=== PATIENT | female | born 1995 | race Hispanic/Latino ===

== ENCOUNTER 2017-06-27 10:26 | Emergency (ER) | payer BC, SELFPAY | END 2017-06-27 11:52 | disposition home or self-care (01) | LOC: SCSER 10:26 | DX: R68.83 Chills (without fever) (principal); I10 Essential (primary) hypertension | CPT/HCPCS: 99283 ==

== ENCOUNTER 2019-03-12 04:02 | Emergency (ER) | payer SELFPAY | END 2019-03-12 05:26 | disposition home or self-care (01) | LOC: ERS 04:02 | DX: O99.89 Other specified diseases and conditions complicating pregnancy, childbirth and the puerperium (principal); R52 Pain, unspecified; O10.911 Unspecified pre-existing hypertension complicating pregnancy, first trimester; Z79.899 Other long term (current) drug therapy | CPT/HCPCS: 99283 ==

== ENCOUNTER 2019-09-05 16:01 | Observation (INO) | payer OTHER ==
[2019-09-05 16:35] VITALS: BMI 40.8
[2019-09-05 17:11] LABS: #Eosinphils 0.1 thou/uL (0.0-0.7); #Lymphocytes 1.7 thou/uL (1.20-3.40); #Monocytes 0.4 thou/uL (0.11-0.59); #Neutrophils 5.1 thou/uL (1.40-6.50); %Basophils 0.4 % (0.0-1.0); %Eosinophils 1.1 % (0.0-10.0); %Lymphocytes 23.3 % (21.0-51.0); %Monocytes 5.7 % (0.0-10.0); %Neutrophils 69.4 % (42.0-75.0); Hemoglobin 10.6 g/dL (12.0-16.0); Mean Corpuscular HGB CONC 33.1 g/dL (32.0-36.0); Mean Corpuscular Hemoglobin 31.4 pg (27.0-31.0); Mean Corpuscular Volume 94.9 fL (78.0-98.0); Mean Platelet Volume 6.9 fL (7.4-10.4); Platelet Count 300 thou/uL (130-400); RBC Distribution Width 12.2 % (11.5-14.5); Red Blood Cell (RBC) Count 3.37 mill/uL (4.20-5.40); White Blood Cell (WBC) Count 7.3 thou/uL (4.8-10.8)
[2019-09-05 17:26] LABS: Creatinine, Urine 29.11 mg/dL (47-110); Protein, Urine Random Quant Less than 10 mg/dL (1-14)
[2019-09-05 17:32] LABS: ALT (SGPT) 20 U/L (8-55); AST (SGOT) 16 U/L (5-34); Albumin 3.7 g/dL (3.5-5.0); Alkaline Phosphatase 149 U/L (40-110); Anion Gap 14 mmol/L (10-20); BUN (Urea Nitrogen) 6 mg/dL (7.0-18.7); Bilirubin, Total 0.3 mg/dL (0.2-1.2); Calc. Creatinine Clearance 248 mL/min (70-130); Calcium 9.1 mg/dL (7.8-10.44); Carbon Dioxide 21 mmol/L (22-29); Chloride 107 mmol/L (98-107); Estimated GFR-MDRD Greater than 90; Globulin 2.9 g/dL (2.4-3.5); Glucose 101 mg/dL (70-105); Potassium 4.1 mmol/L (3.5-5.1); Protein, Total 6.6 g/dL (6.0-8.3); Sodium 138 mmol/L (136-145); Uric Acid 3.9 mg/dL (2.6-6.0)
[2019-09-05] MEDS ORDERED: hydrALAZINE 20 MG/ML VIAL SLOW IVP PRN (17:38)
[2019-09-05] MEDS ORDERED: Ondansetron PF 4 MG/2 ML Vial IVP PRN (17:38)
--- NOTE | 2019-09-05 19:18 | HP ---
PRIMARY OB: Yadira Gutierrez MD CHIEF COMPLAINT: Elevated blood pressures. HISTORY OF PRESENT ILLNESS: The patient is a 24-year-old G1, P0 female with an intrauterine at 34 weeks and 2 days, presenting to Labor and Delivery from clinic with severely elevated blood pressures. The patient reports that her doctor reports her blood pressure is 170/110 without symptoms and came here for evaluation. The patient does have a history of chronic hypertension, has been on labetalol 100 mg twice a day with most of this . She denies any headache, chest pain, shortness of breath, nausea, vomiting, diarrhea, constipation, hip problems, knee problems, or muscle weakness. Denies abdominal pain, vaginal bleeding, leakage of fluid, urinary urgency, or frequency. PAST MEDICAL HISTORY: Chronic hypertension. PAST SURGICAL HISTORY: Tonsils and adenoids were removed. SOCIAL HISTORY: Denies drug, alcohol, or tobacco use. ALLERGIES: NO KNOWN DRUG ALLERGIES. MEDICATIONS: vitamins and labetalol 100 mg twice a day. OB LABORATORY DATA: Blood type is O positive. Antibody screen is negative. Hepatitis B surface antigen is nonreactive. HIV nonreactive. GC chlamydia negative. Rubella immune. One-hour Glucola 100. GBS is negative, but this is dated 03/22/2019. REVIEW OF SYSTEMS: Per HPI. PHYSICAL EXAMINATION: VITAL SIGNS: Blood pressure on arrival is 155/112. Subsequent blood pressures have spontaneously dropped into the normal range over the course of an hour to 127/83, heart rate of 76, respiratory rate of 16, temperature 98.5. GENERAL: She appears to be in no acute distress. She is alert, oriented, cooperative, and pleasant to interact with. HEAD: Normocephalic, atraumatic. LUNGS: Clear to auscultation bilaterally. HEART: Has a regular rate and rhythm. ABDOMEN: Gravid, soft, nontender. EXTREMITIES: Nontender, nonedematous. She has 1+ DTRs. DIAGNOSTIC DATA: heart tracing shows the fetus with a baseline in the 140s with moderate long-term variability, positive 15 x 15 accelerations, no decelerations. Tocometer shows no contractions. Ultrasound was done most recently 2 weeks ago and within normal growth per Dr. Gutierrez's report. LABORATORY DATA: White count of 7.3, hemoglobin 10.6, hematocrit 32.0, platelets 300,000. Sodium 138, potassium 4.1, BUN 6, creatinine 0.54, AST of 16, ALT of 20. Random urine total protein less than 10. Urine creatinine of 29, uric acid 3.9. ASSESSMENT AND PLAN: The patient is a 24-year-old female with an intrauterine at 34 weeks and 2 days with a diagnosis of chronic hypertension and has been on labetalol 100 mg twice a day, now for most of her since about 13 weeks gestation. The patient appears to be exhibiting some exacerbation of her blood pressure, possibly blood pressures are ranging in the severe range systolic in the clinic and some severe range diastolic pressures here. However, these pressures have spontaneously resolved. There are no labs showing any worsening disease or clear evidence of preeclampsia. The patient is going to be observed here approximately for the next 24 hours. We will be increasing her labetalol dose to 200 twice a day and evaluate for good response. Should the patient continue to spike severe pressures, we will be placing her on magnesium during this evaluation. Fetus has a category 1 [address]ST[address] Gutierrez has been updated. Job ID: [id number]
[2019-09-05] MEDS: Labetalol 100 MG TAB PO SCH (21:05)
[2019-09-05] MEDS: Betamet Acet/Betamet Na Ph 30 MG/5 ML VIAL IM SCH (21:16)
[2019-09-06] MEDS ORDERED: Acetaminophen 500 MG TAB PO PRN (07:26)
--- NOTE | 2019-09-06 08:15 | PDOC.EVN ---
Event Note - Event Note Event Note: [employer] Technician OBGYN Here with Dr Archer and BPs reviewed Continue to follow on Labetolol 200mg po BIB...one elevated BP this am after going to bathroom. Otherwise normal. We are managing for Dr Gutierrez
--- NOTE | 2019-09-06 08:21 | PRG ---
DATE OF SERVICE: 09/06/2019 SUBJECTIVE: The patient is a 24-year-old female with chronic hypertension, who was admitted yesterday for exacerbation versus superimposed preeclampsia. Workup did not show any evidence of worsening disease and is presumed that she is having some exacerbation of her blood pressure. Her home medication has been increased from labetalol 100 mg twice a day to 200 mg twice a day beginning last night. This morning, she reports that she has a very mild headache, but is not requesting any pain medication or declined pain medication for it. She says it is just present but not causing her any pain. Denies any shortness of breath or chest pain. OBJECTIVE: VITAL SIGNS: Blood pressure this morning 159/103. The patient was sitting up at the side of her bed and had just come from the bathroom and having a discussion with myself, 30 minutes prior to that it is 117/72, 131/77, prior to that 116/80. Primary blood pressures overnight while she is sleeping was one teens to 100s over 50s to 60s. Yesterday evening, 130s to 150s where her blood pressure. Pulse in the 70s, respiratory rate 18. GENERAL: She appears to be in no acute distress. LUNGS: Clear. NEUROLOGIC: DTRs are 1+. heart tracing last night shows the fetus with a baseline in the 130s with moderate long-term variability, positive 15 x 15 accelerations, has not been placed on the monitor yet this morning. ASSESSMENT AND PLAN: The patient is a 24-year-old, G1, P0, female with chronic hypertension and intrauterine at 34 weeks and 3 days. We have increased her labetalol to 200 mg twice a day and we will be following her today to see if her blood pressures stay within the mild range. Her blood pressure this morning at 159/103, may not be indicative of her response due to the timing and the evidence around this blood pressure. Dr. Benton is the oncoming physician. He will continue to monitor and make adjustments as necessary with her medications. I anticipate the patient to be discharged either tonight or tomorrow. Job ID: [id number]
[2019-09-06] MEDS: Labetalol 100 MG TAB PO SCH ×2 (08:33→21:03)
[2019-09-06] MEDS ORDERED: FLU VACC QS2019-20(6MOS UP)/PF 60 MCG/0.5 ML SYRINGE IM ONE (09:00)
--- NOTE | 2019-09-06 09:35 | PRG ---
DATE OF SERVICE: 09/06/2019 OBGYN fuel injection servicer TIME OF EVALUATION: The time of evaluation was roughly 0855 hours until 0905 hours. The time is now 0907 hours. LOCATION: Antepartum bed 1 in Labor and Delivery. Please label this on-call note. Hospital day #1, in brief, this patient was admitted by Dr. Archer last night on-call as a patient of Dr. Gutierrez, who was at 34 weeks and 3 days with a history of chronic hypertension with blood pressures estimation from the clinic, who was sent here for further evaluation. She was placed on labetalol 200 mg [address] p[address] b[address]d. by Dr. Archre, which is higher dose than her baseline. She is here for blood pressure adjustment and no evidence of superimposed preeclampsia. I evaluated the patient at bedside along with Kim, the patient's nurse. Another observer was Gladis Parra, who is our undergraduate medical transport specialist. I addressed with the patient, the patient's condition and the desired management of conservative care until at least 37 weeks if possible. The patient does acknowledge that she has a history of chronic hypertension and so this is likely not a new development, but was untreated prenatally with medication adjusted during this . She denies any other medical history. The patient received steroid last night and her second dose will be tonight at approximately 2100 hours. I discussed with her medication adjustment and continuation of the medication at this dose with possible discharge home after her second steroid if the blood pressure remains nonsevere. The patient's blood pressures range from one teens over 120 systolic to 60s to 80s diastolic. When I was talking to her, and Kim was at bedside, the patient did have a blood pressure of 162 over low 90s. This was asymptomatic. This may have been anxiety induced/white coat hypertension. Right now, there is no indication for immediate delivery as this is most likely chronic hypertension. Her -induced hypertension laboratory data was reviewed by me, and is without overt abnormalities. Her hematocrit value is 32. Her platelets are 300. Her AST and ALT are 16 and 20 respectively, and her creatinine is 0.54. Her urine protein is negative, which rules out proteinuric hypertension (preeclampsia currently not present). FINAL ASSESSMENT: This is a patient at 34 weeks and 3 days, primigravida, with chronic hypertension history that needs medical adjustment. Steroids were given and she is under 36 weeks and 6 days, and this was addressed with her. PLAN: 1. Continue blood pressure observations with BP checks every 4. 2. Continue labetalol 200 mg one p.o. b.i.d. 3. Second steroid administration at 2100 hours tonight. 4. The patient has desired discharge after her steroid and I feel that is acceptable as long as her blood pressures remained in the nonsevere range. 5. I discussed with her that if she goes home, she may stay off work tomorrow for extra rest (without bed rest) with a blood pressure check on Tuesday next week. Job ID: [id number] MTDD
--- NOTE | 2019-09-06 18:28 | PDOC.EVN ---
Event Note - Event Note Event Note: OBGYN Doing well BPs reviewed...overall they are 130/70-80s...isolated spikes in BP occurred today but were sporadic. Second celestone pending. Patient does have known CHTN and protein is negative. I do feel it would be ok to release after the second injection with close outpatient follow up. I do not feel induction of labor is needed at this time. Meds: Labetolol 200mg po BIB
--- NOTE | 2019-09-06 19:14 | DIS ---
DATE OF ADMISSION: 09/05/2019 DATE OF DISCHARGE: 09/06/2019 The patient's primary DIAZO TECHNICIAN provider is Dr. Yadira Gutierrez. PRINCIPAL DIAGNOSES: 1. Third trimester . 2. Chronic hypertension. 3. Chronic hypertension, exacerbation. HISTORY OF PRESENT ILLNESS: In brief, the patient was admitted by Dr. Archer on September 05, 2019 for blood pressure control. She has a history of chronic hypertension that predates this gestation. She was on labetalol 100 mg p.o. b.i.d. and was sent from the office for blood pressure evaluation noted there. For full details of the H and P, please turn to the H and P dictated by Dr. Archer. I evaluated and assumed care of the patient on September 06, 2019 in the morning. Blood pressures remained between 120s to 140s with diastolics of 80s to 90s. She did have some elevated sporadic blood pressures in the high 150s to 160s, but they were not persistent and very isolated. This was also when I was talking to her or when the nurse was in the room, raising concern for possible "white coat" hypertension. She was asymptomatic. The patient's labs were all within normal limits during the evaluation process. Her urine protein was less than 10, which is negative. We discussed continued inpatient therapy versus outpatient and the patient felt comfortable with outpatient care. She did receive Celestone with second injection programmed for September 06, 2019 at approximately 9:00 p.m. I discussed with her continuation of labetalol dose at 200 mg one p.o. b.i.d. when she gets home. I did also order this prescription electronically at the pharmacy and she has 100 mg tablets at home which she will adjust to equal to 200 mg p.o. b.i.d. Also discussed discharge with Dr. Gutierrez, who is in agreement with the plan. She will follow up on Tuesday for repeat blood pressure check. Her EGA was 34 weeks and about 3 days. There was no acute indication or reason for induction at this time, and we discussed medically indicated induction of labor versus expectant management and expectant management was chosen based on her clinical well-being. Job ID: [id number]
[2019-09-06 21:04] VITALS: BP 123/70
[2019-09-06] MEDS: Betamet Acet/Betamet Na Ph 30 MG/5 ML VIAL IM SCH (21:07)
== END 2019-09-06 21:30 | disposition home health service (06) ==
LOC: L&D/OP 16:01 → L&D 17:48
PROVIDERS: ADMIT Obstetrics & Gynecology; ATTEND Obstetrics & Gynecology
DX: O10.913 Unspecified pre-existing hypertension complicating pregnancy, third trimester (principal); Z3A.34 34 weeks gestation of pregnancy; Z79.82 Long term (current) use of aspirin; Z79.899 Other long term (current) drug therapy
CPT/HCPCS: 36415; 80053; 82570; 84156; 84550; 85025; 87081; 96372; 99285; G0378; J0702

== ENCOUNTER 2019-09-19 16:27 | Inpatient (IN) | payer OTHER ==
[~2019-09-19 16:27] MED LIST: Bupivacaine PF 0.5% 30 ML VIAL ONE
[2019-09-19 17:18] VITALS: BMI 39.9
[2019-09-19] MEDS ORDERED: hydrALAZINE 20 MG/ML VIAL SLOW IVP PRN ×2 (18:23→19:11)
[2019-09-19] MEDS ORDERED: hydrALAZINE 20 MG/ML VIAL ONE (18:28)
[2019-09-19 19:07] LABS: #Basophils 0.1 thou/uL (0.0-0.2); #Eosinphils 0.1 thou/uL (0.0-0.7); #Lymphocytes 1.9 thou/uL (1.20-3.40); #Monocytes 0.5 thou/uL (0.11-0.59); #Neutrophils 6.8 thou/uL (1.40-6.50); %Basophils 0.7 % (0.0-1.0); %Eosinophils 0.9 % (0.0-10.0); %Lymphocytes 20.4 % (21.0-51.0); %Monocytes 5.3 % (0.0-10.0); %Neutrophils 72.7 % (42.0-75.0); Hemoglobin 11.6 g/dL (12.0-16.0); Mean Corpuscular HGB CONC 34.2 g/dL (32.0-36.0); Mean Corpuscular Hemoglobin 32.7 pg (27.0-31.0); Mean Corpuscular Volume 95.7 fL (78.0-98.0); Mean Platelet Volume 7.2 fL (7.4-10.4); Platelet Count 260 thou/uL (130-400); RBC Distribution Width 12.7 % (11.5-14.5); Red Blood Cell (RBC) Count 3.53 mill/uL (4.20-5.40); White Blood Cell (WBC) Count 9.4 thou/uL (4.8-10.8)
[2019-09-19] MEDS ORDERED: NS / Oxytocin 40 units/1000ml 1,000 ML IV PRN (19:11)
[2019-09-19] MEDS ORDERED: Promethazine HCl 25 MG/ML VIAL IM PRN (19:11)
[2019-09-19] MEDS ORDERED: Ibuprofen 800 MG TAB PO PRN (19:11)
[2019-09-19] MEDS ORDERED: Meperidine HCl/PF 25 MG/ML VIAL IM/IV PRN (19:11)
[2019-09-19] MEDS ORDERED: Lidocaine 1% (PF) 30 ML VIAL SC PRN (19:11)
[2019-09-19] MEDS ORDERED: Calcium Gluc 4.6 MEQ/10 ML (100 MG/ML) SLOW IVP PRN (19:11)
[2019-09-19] MEDS ORDERED: Ondansetron PF 4 MG/2 ML Vial IVP PRN (19:11)
[2019-09-19] MEDS ORDERED: HYDROcodone/Acetaminophen 5/325 mg Tablet PO PRN ×2 (19:11)
[2019-09-19] MEDS ORDERED: Butorphanol Tartrate 1 MG/ML VIAL SLOW IVP PRN (19:11)
[2019-09-19] MEDS ORDERED: Magnesium Sulfate 20 GM/WATER 500 ML BAG IVPB SCH (19:15)
[2019-09-19] MEDS ORDERED: NS w/ Oxytocin 10 units 500 ML IV SCH (19:15)
--- NOTE | 2019-09-19 19:17 | PDOC.LDHP ---
Labor and Delivery H&P Chief complaint: other (elevated BP in clinic) HPI: 24 yo LAF sent to L&D after seen at [facility] with BPs 160-170 systolic. Seen with elevated BPs 2 weeks ago and given steroids. Denies NORTH, blurry vision or RUQ pain. Current gestational age (weeks): 36 Due date: 10/15/19 Dating criteria: last menstrual period Grav: 1 Para: 0 OB History Details: PNC with Dr. Gutierrez complicated by chronic HTN. Current complications: hypertension Abnormal US findings: No Past Medical History: HTN Current medications: pre-rena vitamins, iron, other (Labetalol 200 BID) Previous surgical history: other (T&A) Allergies/Adverse Reactions: Allergies Allergy/AdvReac Type Severity Reaction Status Date / Time No Known Allergies Allergy Verified 09/19/19 17:18 Social history: none - Physical Exam Abnormal vital signs: 173/106 General: resting Heart: RRR Lungs: nonlabored breathing Abdomen: gravid Extremeties: trace edema FHT: category 1 [place] contractions every: occasional UC seen - Vaginal Exam cm dilated: 0 Effacement: 25% Station: -2 - OB Labs GBS: unknown - Assessment L&D Assessment: medically indicated induction (36 week IUP with chronic HTN Has received steroids) - Plan Plan: admit to L&D, cervical ripening, magnesium for seizure prophylaxis, anesthesia consult for pain management, other (D/w Dr. Gutierrez)
[2019-09-19] MEDS ORDERED: Labetalol HCl 100 MG/20 ML VIAL SLOW IVP SCH (19:30)
[2019-09-19] MEDS: Lactated Ringer's 1,000 ML IV SCH (19:35)
[2019-09-19] MEDS: Magnesium Sulfate 20 GM in Dextrose 5% in Water 460 ML IVPB SCH (19:35)
[2019-09-19 19:41] LABS: ALT (SGPT) 17 U/L (8-55); AST (SGOT) 16 U/L (5-34); Albumin 3.8 g/dL (3.5-5.0); Alkaline Phosphatase 186 U/L (40-110); Anion Gap 12 mmol/L (10-20); BUN (Urea Nitrogen) 6 mg/dL (7.0-18.7); Bilirubin, Total 0.4 mg/dL (0.2-1.2); Calc. Creatinine Clearance 246 mL/min (70-130); Calcium 9.6 mg/dL (7.8-10.44); Carbon Dioxide 23 mmol/L (22-29); Chloride 105 mmol/L (98-107); Estimated GFR-MDRD Greater than 90; Globulin 3.4 g/dL (2.4-3.5); Glucose 79 mg/dL (70-105); Potassium 3.9 mmol/L (3.5-5.1); Protein, Total 7.2 g/dL (6.0-8.3); Sodium 136 mmol/L (136-145)
[2019-09-19 19:52] LABS: Syphilis Antibody Nonreactive (Nonreactive); Syphilis Antibody Index 0.05 S/CO (<1.00 Non-Reactive)
[2019-09-19 19:53] LABS: HBSAg Index 0.24 S/CO (0-0.99); Hep B Surf Ag Non-Reactive S/CO (NonReactive)
[2019-09-19] MEDS: Misoprostol 100 MCG TAB VAG SCH ×2 (20:31→23:39)
[2019-09-19 21:08] LABS: Creatinine, Urine Less than 20.00 mg/dL (47-110); Protein, Urine Random Quant Less than 10 mg/dL (1-14)
[2019-09-20] MEDS: Misoprostol 100 MCG TAB VAG SCH ×4 (02:39→18:52)
[2019-09-20] MEDS: Magnesium Sulfate 20 GM in Dextrose 5% in Water 460 ML IVPB SCH ×3 (03:46→23:34)
[2019-09-20] MEDS ORDERED: Acetaminophen 325 MG TAB PO PRN ×2 (03:56→10:55)
[2019-09-20] MEDS ORDERED: Acetaminophen 325 MG TAB PO SCH (04:00)
[2019-09-20] MEDS ORDERED: Labetalol HCl 100 MG/20 ML VIAL SLOW IVP SCH ×2 (08:45→19:30)
[2019-09-20] MEDS ORDERED: FLU VACC QS2019-20(6MOS UP)/PF 60 MCG/0.5 ML SYRINGE IM ONE (09:00)
[2019-09-20] MEDS ORDERED: Fentanyl 4 mcg/Bup 0.1% Cadd 100 ML ONE ×2 (09:38→18:37)
[2019-09-20] MEDS: Fentanyl 4 mcg/Bupivacaine 0.1% Cassette 100 ML EPIDURAL SCH ×2 (10:49→18:45)
[2019-09-20] MEDS ORDERED: Promethazine HCl 25 MG/ML VIAL IM PRN (10:55)
[2019-09-20] MEDS ORDERED: Ondansetron PF 4 MG/2 ML Vial IVP PRN (10:55)
[2019-09-20] MEDS ORDERED: Naloxone HCl 0.4 mg/ml Vial IVP PRN ×2 (10:55)
[2019-09-20] MEDS ORDERED: ePHEDrine/0.9% NaCl/PF SYRINGE 50 mg/10 ml SLOW IVP PRN (10:55)
[2019-09-20] MEDS ORDERED: diphenhydrAMINE 50 MG/ML VIAL IVP PRN (10:55)
[2019-09-20] MEDS ORDERED: Lactated Ringer's 500 ML IV PRN (10:55)
[2019-09-20] MEDS ORDERED: Communication Order-Pharmacy FS SCH (11:00)
[2019-09-20] MEDS: Lactated Ringer's 1,000 ML IV SCH ×2 (11:05→12:11)
[2019-09-20] MEDS ORDERED: hydrALAZINE 20 MG/ML VIAL SLOW IVP PRN (21:50)
[2019-09-20] MEDS ORDERED: hydrALAZINE 20 MG/ML VIAL SLOW IVP SCH (22:00)
[2019-09-21] MEDS: hydrALAZINE 20 MG/ML VIAL SLOW IVP PRN ×2 (01:11→07:51)
[2019-09-21] MEDS ORDERED: Fentanyl 4 mcg/Bup 0.1% Cadd 100 ML ONE (04:11)
[2019-09-21] MEDS: Fentanyl 4 mcg/Bupivacaine 0.1% Cassette 100 ML EPIDURAL SCH (04:18)
[2019-09-21] MEDS ORDERED: Lidocaine 1% (PF) 30 ML VIAL ONE (04:25)
[2019-09-21] MEDS ORDERED: NS / Oxytocin 40 units/1000ml 1,000 ML ONE (04:25)
[2019-09-21] MEDS ORDERED: Carboprost 250 MCG/ML AMP ONE (04:31)
[2019-09-21] MEDS ORDERED: Misoprostol 200 MCG TAB ONE (04:32)
[2019-09-21] MEDS ORDERED: Bisacodyl 10 MG SUPP PR PRN (06:23)
[2019-09-21] MEDS ORDERED: Misoprostol 200 MCG TAB VAG PRN (06:23)
[2019-09-21] MEDS ORDERED: Acetaminophen/Codeine 30-300mg Tablet PO PRN (06:23)
[2019-09-21] MEDS ORDERED: Calcium Gluconate 4.6 MEQ in Sodium Chloride 0.9% 100 ML IVPB PRN (06:23)
[2019-09-21] MEDS ORDERED: Preparation H Ointment 28 GM TUBE PR PRN (06:23)
[2019-09-21] MEDS ORDERED: Milk Of Magnesia 30 ML UDCUP PO PRN (06:23)
[2019-09-21] MEDS ORDERED: Benzocaine-Menthol 82.5 ML CAN TOP PRN (06:23)
[2019-09-21] MEDS ORDERED: hydrALAZINE 20 MG/ML VIAL SLOW IVP PRN (06:23)
--- NOTE | 2019-09-21 06:23 | PDOC.OPDEL ---
OB Operative/Delivery Note Delivery Dr/Surgeon: Brenda Pre-Delivery Diagnosis: medically indicated induction Procedure/Post Delivery Dx: spontaneous vaginal delivery Weeks gestation: 36 Anesthesia: epidural - Findings A - 1 min: 8 - 5 min: 9 - Additional Findings/Plan Placenta delivered: spontaneous Repaired Obstetrical Laceration: 2nd degree Estimated blood loss: 150 ml qbl Post delivery plan: recovery in LICU
[2019-09-21] MEDS ORDERED: NS / Oxytocin 40 units/1000ml 1,000 ML IV SCH (06:30)
[2019-09-21] MEDS: Misoprostol 100 MCG TAB VAG SCH ×3 (07:48→18:26)
[2019-09-21] MEDS: Labetalol 100 MG TAB PO SCH ×2 (07:52→20:44)
[2019-09-21] MEDS ORDERED: Adacel (T-DAP) 0.5 ML SYRINGE IM ONE (09:00)
[2019-09-21] MEDS: Ibuprofen 800 MG TAB PO SCH ×2 (09:06→21:44)
[2019-09-21] MEDS: Magnesium Sulfate 20 GM in Dextrose 5% in Water 460 ML IVPB SCH ×2 (09:08→20:44)
[2019-09-21] MEDS: Lactated Ringer's 1,000 ML IV SCH ×2 (12:26→15:37)
[2019-09-21] MEDS: Ferrous Sulfate 325 MG TAB PO SCH ×2 (15:36→18:26)
[2019-09-21] MEDS: Prenatal Vitamin 1 TAB PO SCH (15:37)
[2019-09-21] MEDS: Docusate Calcium (SURFAK) 240 MG CAP PO SCH ×2 (15:37→20:44)
[2019-09-22] MEDS: Lactated Ringer's 1,000 ML IV SCH ×2 (03:35→14:57)
[2019-09-22] MEDS: Ibuprofen 800 MG TAB PO SCH ×3 (06:04→21:09)
--- NOTE | 2019-09-22 07:24 | PRG ---
DATE OF SERVICE: 09/22/2019 TIME OF SERVICE: 0700 hours. SUBJECTIVE: Ms. Cox is one day post normal spontaneous vaginal delivery by Dr. Yadira Gutierrez. She was put on LICU care for magnesium sulfate for severe gestational hypertension. The patient was on labetalol 200 p.o. b.i.d. prior to delivery. She has been back on this post delivery and has had blood pressures down to 100s/70s with this overnight. OBJECTIVE: VITAL SIGNS: Temperature 98.4, respirations 18, blood pressure 108/72, pulse 85. The patient is resting comfortably. Has no concerns. ABDOMEN: Soft and nontender. No rebound or guarding. Normal fundus. Normal lochia. EXTREMITIES: No clubbing, cyanosis, or edema. Urine output has been greater than 200 mL/h, clear urine, not concentrated. Edema is minimal. DTRs are 1+. The patient denies headache, scotoma, or right upper quadrant pain. IMPRESSION: Gestational hypertension, severe range in the alida-delivery period, now improved. PLAN: Discontinue mag, transfer to the floor. We will decrease labetalol to 100 p.o. b.i.d. and observe. The patient may need total cessation of labetalol if blood pressures remain low. The patient will likely be eligible for discharge on 09/23/2019. Job ID: [id number]
[2019-09-22] MEDS: Prenatal Vitamin 1 TAB PO SCH (09:59)
[2019-09-22] MEDS ORDERED: Labetalol 100 MG TAB PO SCH (10:00)
[2019-09-22] MEDS: Docusate Calcium (SURFAK) 240 MG CAP PO SCH ×2 (10:00→21:09)
[2019-09-22] MEDS: Misoprostol 100 MCG TAB VAG SCH (14:57)
[2019-09-22] MEDS: Labetalol 100 MG TAB PO SCH ×2 (14:58→21:10)
[2019-09-22] MEDS: Ferrous Sulfate 325 MG TAB PO SCH (14:58)
[2019-09-22] MEDS ORDERED: Lactated Ringer's 1,000 ML IV SCH (23:45)
[2019-09-22] MEDS ORDERED: Sodium Chloride 0.9% 10 ML ONE (23:51)
[2019-09-23] MEDS: Ampicillin/Sulbactam 3 GM in Sodium Chloride 0.9% 100 ML IVPB SCH ×4 (00:59→18:43)
[2019-09-23 01:03] LABS: Bacteria/HPF 2+ HPF (None Seen); Bilirubin Negative (Negative); Blood, Urine 3+ (Negative); Clarity Turbid (Clear); Glucose, Urine (Dipstick) Normal (Negative); Leukocyte 500 Leu/uL (Negative); Nitrite 2+ (Negative); Protein, Urine (Dipstick) 50 mg/dL (Neg-Trace); RBC/HPF Greater than 50 HPF (0-3); Urobilinogen Normal mg/dL (Less than 2); WBC/HPF Greater than 50 HPF (0-3)
[2019-09-23] MEDS: Ibuprofen 800 MG TAB PO SCH ×3 (05:23→21:46)
[2019-09-23] MEDS ORDERED: Lactated Ringer's 1,000 ML IV SCH ×2 (06:15)
--- NOTE | 2019-09-23 06:16 | PDOC.PP ---
Post Progress Note Post Day #: 2 Subjective: Pt reports doing better this morning. Reports still having some chills. Denies any fevers. Reports some burning after urination. Pt denies any cough, nasal congestion. Denies any nausea or vomiting. Pt denies any lightheadness or dizziness. Pt denies any chest pain or SOB. States has gotten up and went to the bathroom and doing well. Pt denies any vaginal discharge. Reports bleeding about the same as period. PO intake tolerated: yes Flatus: yes Ambulation: yes Vital Signs (12 hours) Temp Pulse Resp BP BP Pulse Ox 09/23/19 05:24 98.5 F 107 H 18 138/65 09/23/19 01:00 98.3 F 107 H 18 115/65 09/22/19 22:55 102.1 F H 123 H 20 128/64 09/22/19 21:10 98 145/76 H 09/22/19 21:05 100.6 F H 98 18 145/76 H 98 Weight Weight 98.883 kg - Physical Examination General: NAD Cardiovascular: no m/r/g Deviation from normal: Regular rhythm. Still mildly tachycardic Respiratory: clear to auscultation bilaterally, non-labored breathing Abdominal: + bowel sounds, lochia (Reports as noraml), no distention, appropriately TTP Fundus firm & at: below umbilicus Extremities: negative homans (B) Perineum: There is still some redness in vaginal area. No discharge. Perineum intact Neurological: no gross focal deficits Psychiatric: A&Ox3, normal affect Result Diagrams: 09/23/19 06:43 09/19/19 18:35 Additional Labs: Post Labs Blood Type O POSITIVE 09/19/19 19:20 Hep Bs Antigen Non-Reactive S/CO (NonReactive) 09/19/19 19:03 (1) , delivered Code(s): O80 - ENCOUNTER FOR FULL-TERM UNCOMPLICATED DELIVERY Status: Acute (2) Chronic hypertension affecting Code(s): O10.919 - UNSP PRE-EXISTING HTN COMP , UNSP TRIMESTER Status : Acute (3) Urinary tract infection Status: Acute Qualifiers: Urinary tract infection type: acute cystitis - Assessment/Plan 24 yo ->1, delivered at 36 weeks 2/2 severe Gestational HTN -Routine Post care -Reports normal lochia. -2nd degree lac. Incision intact. No drainage or sign of infection noted. Sepsis 2/2 UTI -Pt last night had fever to 102.1 and tachycardia to 126. Abdomen was hot and tender to touch. Possibly thought to endometritis vs UTI. -UA 3+ blood, 2+Nitrite, LE 500, WBC greater than 50, Urine Bacteria 2+, 4-6 squam epithelial. -Started on Unasyn 3g IV q6 hrs for concern for endometritis as labs were pending. Will switch to Rocephin to tx for UTI at this time. Urine cx, Blood cx pending. -LR fluid bolus x2. Will continue IVF if still tachycardic after 2nd bolus severe Gestational HTN -BP stable. No severe range pressures noted. -continue 100 mg Labetolol BID. Trend BP throughout the day and adjust as needed. -Received magnesium. Off for over 24 hours. Addendum - Attending - Attending Attestation Date/Time: 09/23/19 8828 I personally evaluated the patient and discussed the management with Dr. Dyer. I agree with the History, Examination, Assessment and Plan documented above with any addition or exceptions noted below. Fever of 102.1 last night. Started on Unasyn but UA returned consistent with UTI, so switched to Rocephin. Continue to monitor.
[2019-09-23 06:53] LABS: #Lymphocytes 0.7 thou/uL (1.20-3.40); #Monocytes 0.3 thou/uL (0.11-0.59); #Neutrophils 7.7 thou/uL (1.40-6.50); %Basophils 0.3 % (0.0-1.0); %Eosinophils 0.1 % (0.0-10.0); %Lymphocytes 8.1 % (21.0-51.0); %Monocytes 3.1 % (0.0-10.0); %Neutrophils 88.3 % (42.0-75.0); Hemoglobin 8.4 g/dL (12.0-16.0); Mean Corpuscular HGB CONC 34.4 g/dL (32.0-36.0); Mean Corpuscular Hemoglobin 33.3 pg (27.0-31.0); Mean Corpuscular Volume 96.7 fL (78.0-98.0); Platelet Count 164 thou/uL (130-400); RBC Distribution Width 12.4 % (11.5-14.5); Red Blood Cell (RBC) Count 2.54 mill/uL (4.20-5.40); White Blood Cell (WBC) Count 8.7 thou/uL (4.8-10.8)
--- NOTE | 2019-09-23 07:40 | PDOC.PP ---
Post Progress Note Post Day #: 1 Subjective: Pt initially had fever to 100.6 but was relatively asx. Just reported some chills. Denied any vaginal discharge. Pt denied any cough, nasal congestion. Denied any chest pain or SOB. She denied any burning with urination or increased frequency. At this time motrin was given and continued to monitor. VS were stable at this time. An hour later was notified pt had fever to 102. 1 and was tachycardic to 102.1. Pt again mainly reported having chills. She at this time reported some minimal abdominal pain. Reported some burning in vaginal area after urination. Denied any increased frequency. PO intake tolerated: yes Flatus: yes Ambulation: yes Vital Signs (12 hours) Temp Pulse Resp BP BP Pulse Ox 102.1 126 18 09/22/19 21:05 100.6 F H 98 18 145/76 H 98 Weight Weight 98.883 kg - Physical Examination General: NAD Deviation from normal: Pt reported some chills. Pt was hot to touch. Cardiovascular: no m/r/g Deviation from normal: Pt tachycardic, normal rhythm Respiratory: clear to auscultation bilaterally, non-labored breathing Abdominal: + bowel sounds, lochia, no distention Deviation from normal: Uterine fundus mildly tender to palpation. Abdomen Hotter to touch overall Fundus firm & at: umbilicus Deviation from normal: Hot to touch compared to rest of body Extremities: negative homans (B) Perineum: Incision intact. No sign of infection, redness or drainage. Deviation from normal: Vaginal area seemed somewhat irritated. No discharge or purulence noted Neurological: no gross focal deficits Psychiatric: A&Ox3, normal affect Result Diagrams: 09/23/19 06:43 09/19/19 18:35 Additional Labs: Post Labs Blood Type O POSITIVE 09/19/19 19:20 Hep Bs Antigen Non-Reactive S/CO (NonReactive) 09/19/19 19:03 (1) , delivered Code(s): O80 - ENCOUNTER FOR FULL-TERM UNCOMPLICATED DELIVERY Status: Acute (2) Chronic hypertension affecting Code(s): O10.919 - UNSP PRE-EXISTING HTN COMP , UNSP TRIMESTER Status : Acute (3) Endometritis Code(s): N71.9 - INFLAMMATORY DISEASE OF UTERUS, UNSPECIFIED Status: Acute - Assessment/Plan At this time pt meets sepsis criteria with fever and tachycardia. Suspect Endometiritis at this time as uterus hot to touch. Some irritation noted in vaginal area. -Urinalysis, Urine Cx, and Blood cx ordered. Flu swab ordered. -Started on Unasyn 3g q6hrs at this time. -Will give 1L LR bolus. -Will continue to monitor vitals -Tylenol and ibuprofen for fevers as needed.
[2019-09-23] MEDS ORDERED: cefTRIAXone\\ROCEPHIN 2 GM in Sodium Chloride 0.9% 100 ML IVPB SCH (08:00)
--- NOTE | 2019-09-23 08:40 | PDOC.EVN ---
Event Note - Event Note Event Note: OBGYN Tube Coverer: 0840 S/P prior team hand off Case reviewed Suspected endometritis vs urinary source. Team has changed over to Unasyn IV this am for broad coverage Blood and urine CX sent Influ negative
[2019-09-23] MEDS: Labetalol 100 MG TAB PO SCH ×2 (09:03→21:46)
[2019-09-23] MEDS: Prenatal Vitamin 1 TAB PO SCH (09:03)
[2019-09-23] MEDS: Docusate Calcium (SURFAK) 240 MG CAP PO SCH ×2 (09:04→21:46)
--- NOTE | 2019-09-23 17:29 | PDOC.EVN ---
Event Note - Event Note Event Note: Temp check: Tmax today 99.8
[2019-09-23] MEDS ORDERED: Sodium Chloride 0.9% 10 ML ONE (18:41)
[2019-09-24] MEDS: Ampicillin/Sulbactam 3 GM in Sodium Chloride 0.9% 100 ML IVPB SCH ×3 (00:49→12:59)
[2019-09-24] MEDS: Ibuprofen 800 MG TAB PO SCH ×2 (05:39→15:01)
--- NOTE | 2019-09-24 07:51 | PDOC.PP ---
Post Progress Note Post Day #: 3 Subjective: Feeling better. No issues. PO intake tolerated: yes Flatus: yes Ambulation: yes Vital Signs (12 hours) Temp Pulse Resp BP Pulse Ox 09/24/19 05:44 98.2 F 81 17 137/73 09/23/19 21:46 111 H 09/23/19 20:00 98.1 F 111 H 99 H 128/83 99 Weight Weight 218 lb Result Diagrams: 09/23/19 06:43 09/19/19 18:35 Additional Labs: Post Labs Blood Type O POSITIVE 09/19/19 19:20 Hep Bs Antigen Non-Reactive S/CO (NonReactive) 09/19/19 19:03 - Assessment/Plan Afebrile past 24 hours. E coli in urine. Currently on Unasyn. Final sensitivities pending. F/u results. May discharge home on oral meds tiday if continues to progress well.
[2019-09-24] MEDS: Labetalol 100 MG TAB PO SCH (09:09)
[2019-09-24] MEDS: Prenatal Vitamin 1 TAB PO SCH (09:09)
[2019-09-24] MEDS: Docusate Calcium (SURFAK) 240 MG CAP PO SCH (09:09)
[2019-09-24 15:20] VITALS: BP 149/81; TEMP 98.1
== END 2019-09-24 17:44 | disposition home or self-care (01) | DRG 807 ==
LOC: L&D/OP 16:27 → L&D 19:11 → 3SW 09-22 09:22
PROVIDERS: ADMIT Obstetrics & Gynecology; ATTEND Obstetrics & Gynecology
PROC: 3E0P7VZ Introduction of Hormone into Female Reproductive, Via Natural or Artificial Opening (ICD-10-PCS; 2019-09-19)
PROC: 10E0XZZ Delivery of Products of Conception, External Approach (ICD-10-PCS; principal; 2019-09-21)
PROC: 0KQM0ZZ Repair Perineum Muscle, Open Approach (ICD-10-PCS; 2019-09-21)
DX: O11.4 Pre-existing hypertension with pre-eclampsia, complicating childbirth (principal); Z37.0 Single live birth; Z3A.36 36 weeks gestation of pregnancy; Z79.899 Other long term (current) drug therapy; B96.20 Unspecified Escherichia coli [E. coli] as the cause of diseases classified elsewhere; O86.20 Urinary tract infection following delivery, unspecified; O70.1 Second degree perineal laceration during delivery; O10.92 Unspecified pre-existing hypertension complicating childbirth
CPT/HCPCS: 36415; 51702; 80053; 81001; 81003; 82570; 83735; 84156; 85025; 86780; 86850; 86900; 86901; 87040; 87077; 87081; 87086; 87186; 87340; 87804; 99285; J0295; J0360; J2001; J2590; J3475; J3490; J7070; S0020